=== PATIENT | male | born 1970 | race Caucasian/White ===

== ENCOUNTER 2017-04-25 15:18 | Emergency (ER) | payer OTHER ==
[~2017-04-25] VITALS: Ht 190.5 cm; Wt 98.9 kg
[2017-04-25] MEDS ORDERED: NORCO 5-325 TA1 EACH PO (16:28)
[2017-04-25] MEDS ORDERED: SILVADENE20 GM TOP (16:28)
== END 2017-04-25 16:58 | disposition home or self-care (01) ==
LOC: ED 15:18
PROC: 2W2EX4Z Dressing of Right Hand using Bandage (ICD-10-PCS; principal; 2017-04-25)
DX: T23.141A Burn of first degree of multiple right fingers (nail), including thumb, initial encounter (principal); Z88.1 Allergy status to other antibiotic agents; X15.0XXA Contact with hot stove (kitchen), initial encounter
CPT/HCPCS: 16000; 90471; 90714; 99283